=== PATIENT | female | born 1950 | race Caucasian/White ===

== ENCOUNTER 2024-01-04 06:08 | Day surgery (SDC) | payer MEDICARE ==
[2024-01-04] MEDS: Sodium Chloride 0.9% 1,000 ML IV SCH (07:05)
[2024-01-04] MEDS ORDERED: Propofol 200 MG/20 ML SDV ONE (07:13)
[2024-01-04] MEDS ORDERED: fentaNYL 50 MCG/ML SDV ONE (07:13)
== END 2024-01-04 09:30 | disposition home or self-care (01) ==
LOC: JP.SDS 06:08
PROVIDERS: ATTEND Surgery
DX: Z12.11 Encounter for screening for malignant neoplasm of colon (principal)
CPT/HCPCS: 00812-QZ; J2704; J3010; J7030